=== PATIENT | male | born 1970 | race Caucasian/White ===

== ENCOUNTER 2021-12-31 23:10 | Emergency (ER) | payer OTHER ==
[2021-12-31] MEDS ORDERED: BABY ASPIRIN 81 MG CHEW PO ONE (23:40)
[2021-12-31] MEDS ORDERED: TORAdol 30 mg Injection IV ONE (23:41)
[2021-12-31 23:53] LABS: Absolute Neutrophil Ct (ANC) 4.55 (1.4-6.9); Basophil (Absolute #) 0.04 (0-0.4); Eosinophil % 1.5 % (0.00-5.0); Eosinophil (Absolute #) 0.16 (0-0.5); Hematocrit 37.2 % (42-50); Lymphocyte (Absolute #) 4.84 (1.0-4.6); Lymphocytes % 45.7 % (24.0-44.0); Mean Cell Volume 97.6 fl (78-100); Mean Corpuscular Hemoglobin 34.1 pg (26-32); Mean Corpuscular Hgb Concent. 34.9 g/dl (32-36); Mean Platelet Volume 8.8 fl (7.5-11.0); Monocytes % 9.4 % (0.0-12.0); Platelet Count 310 K/mm3 (150-450); Red Blood Count 3.81 M/mm3 (4.1-5.6); Red Cell Distribution Width 13.2 % (11.5-14.0); White Blood Count 10.6 K/mm3 (4.0-10.5)
[2021-12-31] MEDS ORDERED: TORAdol 30 mg Injection ONE (23:59)
[2021-12-31] MEDS ORDERED: BABY ASPIRIN 81 MG CHEW ONE (23:59)
[2022-01-01] LABS: INR 1.03 (0.8-3.0); PROTIME 12.2 SECONDS (9.4-12.5)
--- NOTE | 2022-01-01 00:11 | ERPHSYRPT ---
- History of Present Illness Historian: patient Exam Limitations: no limitations Patient Subjective Stated Complaint: pt states while at work he began having rt side chest pain. states radiates to middle of chest at times. states pain is worse with a deep breath Triage Nursing Assessment: pt alert and oriented, answers questions approp. pt back per wheelchair and transfers to stretcher per self with steady gait noted. respirations nonlabored. lungs cta bilat. skin warm and dry. heart rate 84 sinus rhythm on monitor. Physician History: 51 yo wm w R sided, sharp chest pain x 3 hours. Pain is 5/10 on scale and does not radiate. It is worse w deep breaths The pain causes mild dyspnea but N/V/diaphoresis are denies. He denies h/o LA/CAD/HTN/Hyperlipidemia but is an insulin requiring diabetic who smokes 1ppd. Pt denies cough/Fever. Timing/Duration: hour(s) (3 hours) Activities at Onset: rest Quality: sharpness Location: substernal (R substernal) Chest Pain Radiation: no radiation Severity of Pain-Max: severe Severity of Pain-Current: moderate Modifying Factors: Improves With: breathing. Worsens With: antacids, coughing, defecating, eating, exertion, lying down, morphine, movement, nitroglycerin, oxygen, palpation, rest, aspirin, sitting up, change in position Associated Symptoms: shortness of breath, No nausea, No vomiting, No palpitations, No heartburn, No abdominal pain, No cough, No hurts to breathe, No diaphoresis, No chills, No fever, No fatigue, No weakness, No swelling/lump in chest, No syncope, No rash, No headache, No dizziness, No edema, No back pain Prior Chest Pain/Cardiac Workup: no prior chest pain Nitro Today/Relief: no nitro taken today Aspirin Treatment Today: no aspirin today Allergies/Adverse Reactions: No Known Drug Allergies Allergy (Verified 12/31/21 23:27) Home Medications: Unobtainable 12/31/21 [History] Hx Tetanus, Diphtheria Vaccination/Date Given: Yes Hx Influenza Vaccination/Date Given: No Hx Pneumococcal Vaccination/Date Given: No Immunizations Up to Date: Yes Travel Risk - International Travel Have you traveled outside of the country in past 3 weeks: No - Coronavirus Screening Are you exhibiting any of the following symptoms?: No Close contact with a COVID-19 positive Pt in past 14-21 Days: No - Vaccine Status Have you recieved a Covid-19 vaccination: No - Review of Systems Constitutional: No Symptoms Eyes: No Symptoms Ears, Nose, & Throat: No Symptoms Respiratory: No Symptoms Cardiac: No Symptoms, Chest Pain Abdominal/Gastrointestinal: No Symptoms Genitourinary Symptoms: No Symptoms Musculoskeletal: No Symptoms Skin: No Symptoms Neurological: No Symptoms Psychological: No Symptoms Endocrine: No Symptoms Hematologic/Lymphatic: No Symptoms Immunological/Allergic: No Symptoms - Past Medical History Endocrine Medical History: Diabetes Type II - Past Surgical History Past Surgical History: Yes Musculoskeletal: Orthopedic Surgery Other Surgical History: knee scopes - Social History Smoking Status: Current every day smoker How long have you smoked: 30 yrs Drug Use: none Patient Lives Alone: No - Nursing Vital Signs Nursing Vital Signs: Initial Vital Signs Temperature 97.3 F 12/31/21 23:13 Pulse Rate 87 12/31/21 23:13 Respiratory Rate 18 12/31/21 23:13 Blood Pressure 132/87 12/31/21 23:13 O2 Sat by Pulse Oximetry 100 12/31/21 23:13 Pain Scale Pain Intensity 2 WNL - Physical Exam General Appearance: no apparent distress Eye Exam: PERRL/EOMI, eyes nml inspection Ears, Nose, Throat Exam: normal ENT inspection, TMs normal, pharynx normal, moist mucous membranes Neck Exam: normal inspection, non-tender, supple, full range of motion, No meningismus, No mass, No Brudzinski, No Kernig's Respiratory Exam: normal breath sounds, lungs clear, airway intact, No respiratory distress Cardiovascular Exam: regular rate/rhythm, normal heart sounds, capillary refill <2 sec, No murmur Gastrointestinal/Abdomen Exam: soft, normal bowel sounds, No tenderness Back Exam: normal inspection, normal range of motion, No CVA tenderness, No vertebral tenderness Extremity Exam: normal inspection, normal range of motion Neurologic Exam: alert, oriented x 3, cooperative, 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, normal mood/affect, nml cerebellar function, sensation nml, No motor deficits, No sensory deficit Skin Exam: normal color, warm, dry, No rash Lymphatic Exam: No adenopathy SpO2 Interpretation: normal SpO2: 100 O2 Delivery: Room Air - Course Nursing assessment & vital signs reviewed: Yes EKG Interpreted by Me: RATE (NSR/Rate 84/Mildly prolonged QTc/[place]/No acute ST changes) - Radiology Exams Chest X-ray Interpretation: Interpreted by me (CXR neg per ER read) Ordered Tests: Active Orders 24 hr Category Date Time Status EKG-ER Only STAT Care 12/31/21 23:40 Completed IV Insertion STAT Care 12/31/21 23:40 Completed CHEST 1 VIEW (PORTABLE) Stat Exams 01/01/22 00:01 Taken CBC W DIFF Stat Lab 12/31/21 23:45 Completed CMP Stat Lab 12/31/21 23:45 Completed D-DIMER QUANTITATIVE Stat Lab 12/31/21 23:45 Completed NT PRO BNP Stat Lab 12/31/21 23:45 Completed PROTIME WITH INR Stat Lab 12/31/21 23:45 Completed TROPONIN Q3H Lab 12/31/21 23:45 Completed TROPONIN Q3H Lab 01/01/22 02:25 Completed Medication Summary Discontinued Medications Generic Name Dose Route Start Last Admin Trade Name Freq PRN Reason Stop Dose Admin Aspirin 324 mg 12/31/21 23:40 01/01/22 00:01 Aspirin 81 Mg Tab.Chew PO 12/31/21 23:41 324 mg STAT ONE Administration Aspirin Confirm 12/31/21 23:59 Aspirin 81 Mg Tab.Chew Administered 01/01/22 00:00 Dose 324 mg .ROUTE .STK-MED ONE Ketorolac Tromethamine 15 mg 12/31/21 23:41 01/01/22 00:00 Ketorolac Tromethamine 30 Mg/Ml Inj IV 12/31/21 23:42 15 mg STAT ONE Administration Ketorolac Tromethamine Confirm 12/31/21 23:59 Ketorolac Tromethamine 30 Mg/Ml Inj Administered 01/01/22 00:00 Dose 30 mg .ROUTE .STK-MED ONE Ketorolac Tromethamine 15 mg 01/01/22 01:04 01/01/22 01:11 Ketorolac Tromethamine 30 Mg/Ml Inj IV 01/01/22 01:05 15 mg STAT ONE Administration Ketorolac Tromethamine Confirm 01/01/22 01:09 Ketorolac Tromethamine 30 Mg/Ml Inj Administered 01/01/22 01:10 Dose 30 mg .ROUTE .STK-MED ONE Lab/Rad Data: Laboratory Result Diagrams 12/31/21 23:45 12/31/21 23:45 Laboratory Results 01/01/22 12/31/21 12/31/21 Range/Units 02:25 23:45 23:45 WBC (4.0-10.5) K/mm3 RBC (4.1-5.6) M/mm3 Hgb (12.5-18.0) gm/dl Hct (42-50) % MCV (78-100) fl MCH (26-32) pg MCHC (32-36) g/dl RDW (11.5-14.0) % Plt Count (150-450) K/mm3 MPV (7.5-11.0) fl Gran % (36.0-66.0) % Eos # (Auto) (0-0.5) Absolute Lymphs (auto) (1.0-4.6) Absolute Monos (auto) (0.0-1.3) Lymphocytes % (24.0-44.0) % Monocytes % (0.0-12.0) % Eosinophils % (0.00-5.0) % Basophils % (0.0-0.4) % Absolute Granulocytes (1.4-6.9) Basophils # (0-0.4) PT 12.2 (9.4-12.5) SECONDS INR 1.03 (0.8-3.0) D-Dimer 392 (215-500) ng/mL Sodium (137-145) mmol/L Potassium (3.5-5.1) mmol/L Chloride (98-107) mmol/L Carbon Dioxide (22-30) mmol/L Anion Gap (5-15) MEQ/L BUN (9-20) mg/dL Creatinine (0.66-1.25) mg/dL Estimated GFR ML/MIN Glucose (74-106) mg/dL Calcium (8.4-10.2) mg/dL Total Bilirubin (0.2-1.3) mg/dL AST (17-59) U/L ALT (0-50) U/L Alkaline Phosphatase (38-126) U/L Troponin I < 0.012 < 0.012 (0.000-0.034) ng/mL NT-Pro-B Natriuret Pep (0-900) pg/mL Serum Total Protein (6.3-8.2) g/dL Albumin (3.5-5.0) g/dL 12/31/21 12/31/21 Range/Units 23:45 23:45 WBC 10.6 H (4.0-10.5) K/mm3 RBC 3.81 L (4.1-5.6) M/mm3 Hgb 13.0 (12.5-18.0) gm/dl Hct 37.2 L (42-50) % MCV 97.6 (78-100) fl MCH 34.1 H (26-32) pg MCHC 34.9 (32-36) g/dl RDW 13.2 (11.5-14.0) % Plt Count 310 (150-450) K/mm3 MPV 8.8 (7.5-11.0) fl Gran % 43.0 (36.0-66.0) % Eos # (Auto) 0.16 (0-0.5) Absolute Lymphs (auto) 4.84 H (1.0-4.6) Absolute Monos (auto) 1.00 (0.0-1.3) Lymphocytes % 45.7 H (24.0-44.0) % Monocytes % 9.4 (0.0-12.0) % Eosinophils % 1.5 (0.00-5.0) % Basophils % 0.4 (0.0-0.4) % Absolute Granulocytes 4.55 (1.4-6.9) Basophils # 0.04 (0-0.4) PT (9.4-12.5) SECONDS INR (0.8-3.0) D-Dimer (215-500) ng/mL Sodium 133 L (137-145) mmol/L Potassium 3.9 (3.5-5.1) mmol/L Chloride 95 L (98-107) mmol/L Carbon Dioxide 27 (22-30) mmol/L Anion Gap 14.8 (5-15) MEQ/L BUN 15 (9-20) mg/dL Creatinine 0.67 (0.66-1.25) mg/dL Estimated GFR > 60.0 ML/MIN Glucose 72 L (74-106) mg/dL Calcium 9.2 (8.4-10.2) mg/dL Total Bilirubin 0.50 (0.2-1.3) mg/dL AST 18 (17-59) U/L ALT 15 (0-50) U/L Alkaline Phosphatase 60 (38-126) U/L Troponin I (0.000-0.034) ng/mL NT-Pro-B Natriuret Pep 65.3 (0-900) pg/mL Serum Total Protein 6.8 (6.3-8.2) g/dL Albumin 4.3 (3.5-5.0) g/dL - Progress Progress: improved Progress Note: 01/01/22 02:41 ASA 324mg po Toradol 15mg IV x1 w minimal improvement Toradol 15mg IV x1 w moderate improvement in pain 01/01/22 02:45 Heart Score 2 Counseled pt/family regarding: lab results, diagnosis, need for follow-up, rad results - Departure Departure Disposition: Home Clinical Impression: Chest pain Condition: Stable Critical Care Time: No Referrals: HEBER REMY, THERMOGRAPH OPERATOR [Primary Care Provider] - Follow up/PCP as directed Instructions: Chest Pain (DC) Additional Instructions: Follow up with your family MD on Monday Return to ER for increasing pain or shortness of breath Forms: Work/School Release Form
[2022-01-01 00:13] LABS: ALBUMIN 4.3 g/dL (3.5-5.0); ALKALINE PHOSPHATASE 60 U/L (38-126); ANION GAP 14.8 MEQ/L (5-15); BLOOD UREA NITROGEN 15 mg/dL (9-20); CHLORIDE 95 mmol/L (98-107); Calcium 9.2 mg/dL (8.4-10.2); Carbon Dioxide 27 mmol/L (22-30); Creatinine 1 0.67 mg/dL (0.66-1.25); EST GLOMERULAR FILTRATION RATE > 60.0 ML/MIN; Glucose 72 mg/dL (74-106); NT PRO BNP 65.3 pg/mL (0-900); Potassium 3.9 mmol/L (3.5-5.1); SGOT/AST 18 U/L (17-59); SGPT/ALT 15 U/L (0-50); SODIUM 133 mmol/L (137-145); Total Protein 6.8 g/dL (6.3-8.2)
[2022-01-01] MEDS ORDERED: TORAdol 30 mg Injection IV ONE (01:04)
[2022-01-01] MEDS ORDERED: TORAdol 30 mg Injection ONE (01:09)
[2022-01-01 03:04] VITALS: BP 138/89; PULSE 75
[2022-01-01 04:36] VITALS: O2SAT 100
--- NOTE | 2022-01-01 07:56 | XRAY ---
Indication: Chest pain. Comparison: September 29, 2021. Portable chest again demonstrates normal heart, lungs, and bony thorax.
== END 2022-01-01 03:08 | disposition home or self-care (01) ==
LOC: ED 23:10
DX: R07.9 Chest pain, unspecified (principal); R06.00 Dyspnea, unspecified; E11.9 Type 2 diabetes mellitus without complications; Z72.0 Tobacco use; Z79.4 Long term (current) use of insulin
CPT/HCPCS: 36000; 36415; 71045; 80053; 83880; 84484; 85025; 85379; 85610; 93005; 96374; 96376; 99284; J1885; A9270-GY